=== PATIENT | male | born 1980 | race Two or more races ===

== ENCOUNTER 2017-12-29 13:19 | Emergency (ER) | payer SELFPAY ==
[2017-12-29] MEDS: HYDROcodone/APAP 5/325MG 1 TAB TABLET PO (13:54)
[2017-12-29] MEDS: ASPIRIN 325 MG TABLET PO (13:54)
[2017-12-29] MEDS: CYCLOBENZAPRINE 10 MG TABLET. PO (13:54)
[2017-12-29 14:04] LABS: BILIRUBIN,URINE NEGATIVE (NEG); CLARITY,URINE CLEAR; COLOR,URINE YELLOW; GLUCOSE,URINE 100 mg/dL (NEG); NITRITE,URINE NEGATIVE (NEG); PROTEIN,URINE NEGATIVE (NEG-TRACE)
[2017-12-29 14:10] LABS: BACTERIA,URINE 0 /HPF (0-FEW); RBC,URINE OCC /HPF (0-2); WBC,URINE OCC /HPF (0-4)
[2017-12-29 14:13] LABS: BARBITURATES NEG (NEG); BENZODIAZEPINES NEG (NEG); CANNABINOIDS NEG (NEG); COCAINE NEG (NEG); METHADONE NEG (NEG); OPIATES NEG (NEG); PHENCYCLIDINE NEG (NEG)
[2017-12-29 14:14] LABS: AMPHETAMINE/METHAMPHETAMINE NEG (NEG); ETHANOL, URINE NEG (NEG)
[2017-12-29 14:25] LABS: ADD MAN DIFF? NO
[2017-12-29 14:27] LABS: BASO # 0.1 x10^3/uL (0.0-0.2); BASO % 1 % (0-3); EOS # 0.2 x10^3/uL (0.0-0.7); EOS % 2 % (0-3); HEMATOCRIT 46.1 % (39.0-53.0); HEMOGLOBIN 15.9 g/dL (13.0-17.5); LYMPH # 1.2 x10^3/uL (1.0-4.8); LYMPH % 14 % (24-48); MEAN CORPUSCULAR HEMOGLOBIN 30 pg (25-35); MEAN CORPUSCULAR HGB CONC 35 g/dL (31-37); MEAN CORPUSCULAR VOLUME 88 fL (79-100); MONO # 0.9 x10^3/uL (0.0-1.1); MONO % 10 % (0-9); NEUT # 6.7 x10^3uL (1.8-7.7); NEUT % 74 % (31-73); PLATELET COUNT 289 x10^3/uL (140-400); RED BLOOD COUNT 5.25 x10^6/uL (4.30-5.70); RED CELL DISTRIBUTION WIDTH 14.3 % (11.5-14.5); WHITE BLOOD COUNT 9.1 x10^3/uL (4.0-11.0)
[2017-12-29 14:39] LABS: ANION GAP 4 (6-14); BLOOD UREA NITROGEN 23 mg/dL (8-26); CALCIUM 8.6 mg/dL (8.5-10.1); CARBON DIOXIDE 30 mmol/L (21-32); CHLORIDE 102 mmol/L (98-107); CREATININE 0.9 mg/dL (0.7-1.3); GLUCOSE 128 mg/dL (70-99); MAGNESIUM 2.1 mg/dL (1.8-2.4); POTASSIUM 3.4 mmol/L (3.5-5.1); SODIUM 136 mmol/L (136-145)
[2017-12-29 14:39] LABS: D-DIMER < 0.27 ug/mlFEU (0.00-0.50)
[2017-12-29 14:46] LABS: TROPONINI < 0.017 ng/mL (0.000-0.055)
[2017-12-29 14:52] LABS: NT-PRO BNP 20 pg/mL (0-124); THYROID STIM HORMONE (TSH) 0.831 uIU/mL (0.358-3.74)
== END 2017-12-29 15:30 | disposition home or self-care (01) ==
LOC: ER 13:19
DX: S46.912A Strain of unspecified muscle, fascia and tendon at shoulder and upper arm level, left arm, initial encounter (principal); M54.2 Cervicalgia; X58.XXXA Exposure to other specified factors, initial encounter; Y93.89 Activity, other specified; Y99.8 Other external cause status; Y92.89 Other specified places as the place of occurrence of the external cause
CPT/HCPCS: 36415; 71045; 72040; 73030; 80048; 80307; 81001; 83735; 83880; 84443; 84484; 85025; 85379; 93005; 99285-25